=== PATIENT | male | born 1995 | race Caucasian/White ===

== ENCOUNTER 2017-11-22 04:06 | Inpatient (IN) | payer BC, OTHER ==
[~2017-11-22] VITALS: Ht 177.8 cm; Wt 83.8 kg
[2017-11-22] VITALS (14 sets, daily range): BP systolic 126–157; BP diastolic 64–79; PULSE 62–142; TEMP 36.9–37.3; O2SAT 92–99; Ht 177.8 cm; Wt 83.8 kg
[2017-11-22] MEDS ORDERED: EpINEphrine INJ 1MG/ML AMP 1 MG/ML AMP ONE (04:16)
[2017-11-22] MEDS ORDERED: FAMOTIDINE IV INJ 20 MG in DEXTROSE 5% 100ML 100 ML IV STA (04:17)
[2017-11-22] MEDS ORDERED: SODIUM CHLORIDE 0.9% 1000ML 1,000 ML IV STA ×2 (04:17→04:42)
[2017-11-22] MEDS ORDERED: DiphenhydrAMINE HCL 50 MG/ML VIAL IV STA (04:17)
[2017-11-22] MEDS ORDERED: RACEPINEPHRINE 2.25% NEBU SOLN 0.5 ML VIAL INH STA (04:20)
[2017-11-22] MEDS ORDERED: ALBUT/IPRATROP 3MG/0.5MG NEB 3 ML VIAL INH STA (04:25)
[2017-11-22] MEDS ORDERED: EpINEphrine HCL INJ 4 MG in DEXTROSE 5% 250ML 250 ML IV STA (04:26)
[2017-11-22] MEDS ORDERED: EpINEphrine INJ 1MG/ML AMP 1 MG/ML AMP IM STA (04:26)
--- NOTE | 2017-11-22 04:26 | EMERGENCY ROOM VISIT NOTE ---
History Report prepared by Fatuma: Ayan Ball Under the Supervision of: Dr. Erik Kurtz M.D. First contact with patient: 04:17 Chief Complaint: ALLERGIC REACTION Stated Complaint: ALLERGY History of Present Illness The patient is a 22 year old male who presents to the Emergency Room with complaints of a worsening allergic reaction that occurred 20 minutes ago. Patient states that he is allergic to milk products. He adds that he used his Epipen in the ER room seconds prior to me entering. Patient states that he has a history of similar symptoms. He states that during the last episode he did not need a tube down his throat. Patient adds that he drank alcohol tonight. Source of History: patient Onset: 20 minutes ago Position: other (Global) Timing: worsening Modifying Factors (Relieving): other (None) Review of Systems See HPI for pertinent positives & negatives. A total of 10 systems reviewed and were otherwise negative. Past Medical & Surgical Medical Problems: (1) Asthma Family History No pertinent family history. Social History Smoking Status: Never Smoker Current/Historical Medications Scheduled Fluticasone Prop/Salmeterol (Advair Diskus 100/50 60 Dose), 2 PUFF INH BID Scheduled PRN Albuterol Hfa (Ventolin Hfa), 2 PUFFS INH Q6H PRN for SOB/Wheezing Allergies Coded Allergies: Dairy (Verified Allergy, Severe, ANAPHYLAXIS, 11/22/17) Physical Exam Vital Signs Date Time Temp Pulse Resp B/P (MAP) Pulse Ox O2 Delivery O2 Flow Rate FiO2 11/22/17 05:56 94 Nasal Cannula 3.0 11/22/17 05:52 90 18 123/72 95 Room Air 11/22/17 05:01 95 22 139/82 98 Nebulizer 10.0 11/22/17 04:52 142 36 96 Mask 15.0 11/22/17 04:36 147 11/22/17 04:33 87 Room Air 11/22/17 04:33 36.5 137 28 150/91 97 Nebulizer 11/22/17 04:20 130 32 88 Room Air Physical Exam GENERAL: Patient is severely ill appearing, acute anaphylactic state, and in severe distress. HEENT: No acute trauma, normocephalic atraumatic, mucous membranes moist, no nasal congestion, no scleral icterus, swelling of eyelids, lips, and ears. NECK: No stridor, no adenopathy, no meningismus, trachea is midline. LUNGS: Mild stridor with diffuse expiratory and inspiratory wheezing, dyspnea, tachypnea, very tight lung sounds, no rhonchi. HEART: Tachycardic rate and rhythm. No murmurs, rubs, gallops appreciated. ABDOMEN: Soft, nontender, bowel sounds positive, no masses appreciated, no peritonitis. BACK: No midline tenderness, no CVA tenderness EXTREMITIES: Normal motion all extremities, no cyanosis, no edema. NEUROLOGIC: Alert and oriented, no acute motor or sensory deficits, no focal weakness, cranial nerves grossly intact. SKIN: Erythematous with blotching/hives, no jaundice, no diaphoresis. Medical Decision & Procedures ER Provider Diagnostic Interpretation: X ray results are stated below per my interpretation: Chest: 1 view: No infiltrate, no effusion, normal cardiac border. Laboratory Results 11/22/17 04:24 Red Blood Count 5.59, Mean Corpuscular Volume 90.2, Mean Corpuscular Hemoglobin 32.9, Mean Corpuscular Hemoglobin Concent 36.5, Mean Platelet Volume 11.1, Neutrophils (%) (Auto) 45.4, Lymphocytes (%) (Auto) 48.5, Monocytes (%) (Auto) 5.1, Eosinophils (%) (Auto) 0.6, Basophils (%) (Auto) 0.1, Neutrophils # (Auto) 3.11, Lymphocytes # (Auto) 3.32, Monocytes # (Auto) 0.35, Eosinophils # (Auto) 0.04, Basophils # (Auto) 0.01 11/22/17 04:24 Test 11/22/17 04:24 White Blood Count 6.85 K/uL (4.8-10.8) Red Blood Count 5.59 M/uL (4.7-6.1) Hemoglobin 18.4 g/dL (14.0-18.0) Hematocrit 50.4 % (42-52) Mean Corpuscular Volume 90.2 fL (80-100) Mean Corpuscular Hemoglobin 32.9 pg (25-34) Mean Corpuscular Hemoglobin Concent 36.5 g/dl (32-36) Platelet Count 272 K/uL (130-400) Mean Platelet Volume 11.1 fL (7.4-10.4) Neutrophils (%) (Auto) 45.4 % Lymphocytes (%) (Auto) 48.5 % Monocytes (%) (Auto) 5.1 % Eosinophils (%) (Auto) 0.6 % Basophils (%) (Auto) 0.1 % Neutrophils # (Auto) 3.11 K/uL (1.4-6.5) Lymphocytes # (Auto) 3.32 K/uL (1.2-3.4) Monocytes # (Auto) 0.35 K/uL (0.11-0.59) Eosinophils # (Auto) 0.04 K/uL (0-0.5) Basophils # (Auto) 0.01 K/uL (0-0.2) RDW Standard Deviation 42.8 fL (36.4-46.3) RDW Coefficient of Variation 13.0 % (11.5-14.5) Immature Granulocyte % (Auto) 0.3 % Immature Granulocyte # (Auto) 0.02 K/uL (0.00-0.02) Anion Gap 8.0 mmol/L (3-11) Estimated GFR () 133.6 Estimated GFR (Non- 115.3 BUN/Creatinine Ratio 10.8 (10-20) Calcium Level 9.2 mg/dl (8.5-10.1) Laboratory results as reviewed by me. Medications Administered Medications (Trade) Dose Ordered Sig/Eileen Route Start Time Stop Time Status Last Admin Dose Admin Epinephrine HCl (EpINEphrine INJ 1MG/ML AMP/VIAL) 1 mg STK-MED ONCE .ROUTE 11/22/17 04:16 11/22/17 04:17 DC 11/22/17 04:16 0.5 MG Diphenhydramine HCl (Benadryl Inj) 50 mg NOW STAT IV 11/22/17 04:17 11/22/17 04:19 DC 11/22/17 04:23 50 MG Dexamethasone Sodium Phosphate (Dexamethasone Inj Pf) 10 mg NOW ONCE IV 11/22/17 04:30 11/22/17 04:31 DC 11/22/17 04:23 10 MG Sodium Chloride 1,000 ml @ 999 mls/hr Q1H1M STAT IV 11/22/17 04:17 11/22/17 05:17 DC 11/22/17 04:23 999 MLS/HR Famotidine 20 mg/ Dextrose 102 ml @ 200 mls/hr NOW STAT IV 11/22/17 04:17 11/22/17 04:47 DC 11/22/17 04:45 200 MLS/HR Racepinephrine (Raccemic Epinephrine 2.25% 0.5ML Neb) 0.5 ml NOW STAT INH 11/22/17 04:20 11/22/17 04:21 DC 11/22/17 04:29 0.5 ML Albuterol/ Ipratropium (Duoneb) 3 ml NOW STAT INH 11/22/17 04:25 11/22/17 04:26 DC 11/22/17 04:51 3 ML Epinephrine HCl (EpINEphrine INJ 1MG/ML AMP/VIAL) 0.5 mg NOW STAT IM 11/22/17 04:26 11/22/17 04:28 DC 11/22/17 04:31 0.5 MG Sodium Chloride 1,000 ml @ 125 mls/hr Q8H STAT IV 11/22/17 04:42 11/22/17 06:53 DC 11/22/17 05:28 125 MLS/HR ED Course 0415: The patient was evaluated in room A3. A complete history and physical exam was performed. 0417: Famotidine 20mg/Dextrose 102ml @ 200mls/hr IV, Sodium Chloride 1000 ml @ 999 mls/hr IV, Benadryl Inj 50mg IV 0420: Racepinephrine 0.5ml INH 0426: Duoneb 3ml INH, Epinephrine HCl 4mg/Dextrose 254 ml @ 0 mls/hr IV, Epinephrine HCl 0.5mg IM 0427: Patient has not improved after the second Epi. I asked that the patient be moved to the trauma bay. I paged critical care. 0430: Dexamethasone Sodium Phosphate 10mg IV 0431: Patient has shown mild improvement. Patient still has very tight lung sounds. He is bright red with hives and ill appearing. 0442: Sodium Chloride 1000 ml @ 125 mls/hr IV 0443: Patient is breathing much better. He is still quite erythematous. Patient has received 3 rounds of IV epinephrine thus far. 0501: Patient is stable. Erythema starting to improve and he states he is beginning to breath well. 0523: Patient is agreeable to coming into the hospital. 0555: Upon reevaluation, the waste management specialist and hospital are at bedside. I discussed results and treatment plan with the patient. He verbalized understanding and agreement with the treatment plan. The patient will be evaluated for further management. Medical Decision Differential: Allergic Reaction, Urticaria, Anaphylaxis, Asthma Exacerbation, Infectious etiology, amongst other etiologies entertained. 22 yr old male arrives in extremis from anaphylaxis s/p eating cheese (known severe allergy milk). Took his own EpiPen on arrival (Exp Nov 2016) just before my evaluation. 2 IVs obtained and patient given another 2 doses IM Epinephrine over next 10-15 minutes. Decadron, Benadryl, Pepcid IV, along with IV fluids. Significant asthma exacerbation by exam which I suspect was set off by anaphylaxis thus hour neb. Initial stridor essentially gone after IM epi and neb Race epi initially. Bedside managemnt throughout much of stay with airway equipment made ready by charge nurse given his initial appearance/ findings. Many repetive exams and while BP remained stable (a bit high post each epi), given persistent symptoms initially was going to start Epi gtt, though symptoms started turning around just prior to this. Labs and CXR unremarkable. BP normalizing as was HR. Still with persistent wheezing though no further stridor, no further significant lip/face swelling, and breathing much more comfortably. I do not feel this is PE, infectious, or other cause. Will hold on intubation given vast improvement he has had while here. 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 This was a life/limb threatening event. This includes time spent evaluating patient, direct bedside care, chart review, placing orders, interpretation of diagnostic studies, discussion with consultants, patient, and family members, as well as other required patient management activities. This 45 minutes is in excess of all separately billable procedures. Scribe Attestation The scribe's documentation has been prepared under my direction and personally reviewed by me in its entirety. I confirm that the note above accurately reflects all work, treatment, procedures, and medical decision making performed by me. Departure Information Dispostion Being Evaluated By Hospitalist Referrals No Doctor, Assigned (PCP) Forms HOME CARE DOCUMENTATION FORM, IMPORTANT VISIT INFORMATION Patient Instructions [facility] Problem Qualifiers
[2017-11-22] MEDS ORDERED: DEXAMETHASONE **PF** INJ 10 MG/ML VIAL IV ONE (04:30)
[2017-11-22 04:32] LABS: BASO % 0.1 %; BASO ABS # 0.01 K/uL (0-0.2); EOS % 0.6 %; EOS ABS # 0.04 K/uL (0-0.5); HEMATOCRIT 50.4 % (42-52); HEMOGLOBIN 18.4 g/dL (14.0-18.0); IG# 0.02 K/uL (0.00-0.02); LYMPH % 48.5 %; LYMPH ABS # 3.32 K/uL (1.2-3.4); MEAN CELL VOLUME 90.2 fL (80-100); MEAN CORPUSCULAR HEMOGLOBIN 32.9 pg (25-34); MEAN CORPUSCULAR HGB CONC 36.5 g/dl (32-36); MEAN PLATELET VOLUME 11.1 fL (7.4-10.4); MONO % 5.1 %; MONO ABS # 0.35 K/uL (0.11-0.59); NEUT % 45.4 %; NEUT ABS # 3.11 K/uL (1.4-6.5); PLATELET COUNT 272 K/uL (130-400); RED CELL DISTRIBUTION WIDTH SD 42.8 fL (36.4-46.3); WHITE BLOOD COUNT 6.85 K/uL (4.8-10.8)
[2017-11-22 04:48] LABS: BLOOD UREA NITROGEN 10 mg/dl (7-18); CALCIUM 9.2 mg/dl (8.5-10.1); CARBON DIOXIDE 26 mmol/L (21-32); CREATININE 0.93 mg/dl (0.60-1.40); GLUCOSE 96 mg/dl (70-99); POTASSIUM 3.8 mmol/L (3.5-5.1); SODIUM 140 mmol/L (136-145)
[2017-11-22] MEDS ORDERED: ADVIN10/60 INH (04:54)
[2017-11-22] MEDS ORDERED: VNTHFA/IN INH (04:54)
[2017-11-22] MEDS ORDERED: ICU PROTOCOL FOR HYPERGLYCEMIA PRN (06:00)
[2017-11-22] MEDS ORDERED: DiphenhydrAMINE INJ 50 MG in SYRINGE 0 ML IV SCH (06:15)
[2017-11-22] MEDS ORDERED: ACETAMINOPHEN IV 100 ML IV PRN (06:15)
--- NOTE | 2017-11-22 06:30 | History and Physical ---
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 In the emergency department he received Decadron 10 mg IV, racemic epinephrine 2, famotidine 20 mg IV, Benadryl 50 mg IV, DuoNeb treatment, nasal cannula oxygen, and did begin to show some improvement that avoided him from being intubated for airway protection. He reports having had a similar episode in the past, with the last episode being 4 years ago. He does report drinking an unknown amount of alcohol this evening as well. He did have an episode of nausea and vomiting, and developed a bright red almost total body macular rash. Family History Noncontributory Social History Smoking Status: Never Smoker Smokeless Tobacco Use: No Alcohol Use: socially Drug Use: none Marital Status: in relationship Occupational Status: [employer] student Immunizations History of Influenza Vaccine: Unknown History of Tetanus Vaccine?: Unknown History of Pneumococcal: Unknown History of Hepatitis B Vaccine: Unknown Multi-Drug Resistant Organisms History of MDRO: No Allergies Coded Allergies: Dairy (Verified Allergy, Severe, ANAPHYLAXIS, 11/22/17) Home Medications Scheduled Fluticasone Prop/Salmeterol (Advair Diskus 100/50 60 Dose), 2 PUFF INH BID Scheduled PRN Albuterol Hfa (Ventolin Hfa), 2 PUFFS INH Q6H PRN for SOB/Wheezing Review of Systems The patient denies fevers, chills, diarrhea , constipation, abdominal pain, pelvic pain, blood in urine or stool, dysuria, urinary frequency or urgency, memory loss, loss of consciousness, rash, abnormal bruising or bleeding, imbalance, focal or generalized weakness, numbness or tingling in arms or legs, generalized arthralgias or myalgias, back or neck pain, or night sweats. The review of systems is otherwise negative other than for that already noted above, and at least 10 systems have been reviewed. Physical Exam Vital Signs Date Time Temp Pulse Resp B/P (MAP) Pulse Ox O2 Delivery O2 Flow Rate FiO2 11/22/17 06:17 73 22 147/72 94 11/22/17 05:56 94 Nasal Cannula 3.0 11/22/17 05:52 90 18 123/72 95 Room Air 11/22/17 05:01 95 22 139/82 98 Nebulizer 10.0 11/22/17 04:52 142 36 96 Mask 15.0 11/22/17 04:36 147 11/22/17 04:33 87 Room Air 11/22/17 04:33 36.5 137 28 150/91 97 Nebulizer 11/22/17 04:20 130 32 88 Room Air The patient is awake, alert and oriented 3, well developed and well nourished, normocephalic and atraumatic, lying in bed and in moderate respiratory distress , improved after above treatments. HEENT--PERRL, EOMI, mucous membranes and oropharynx dry. Neck--supple. No JVD. No bruits. Thyroid normal, trachea midline, no adenopathy. Heart--normal S1 and S2. No murmurs, rubs or gallops. Lungs--diffuse inspiratory and expiratory wheezes, overall still very tight, with moderate respiratory distress and accessory muscle use. Abdomen--normal bowel sounds and soft. Nontender. Nondistended, no hernias or masses, no organomegaly. Extremities--no cyanosis or clubbing. No edema. There are good distal pulses b/ l. Dermatologic--initially diffuse macular rash with hives, which has improved to the generalized flattened macular rash Neurologic--cranial nerves II through XII grossly intact. Rheumatologic--normal range of motion. Psychiatric--normal affect. Diagnostics Laboratory Results Results Past 24 Hours Test 11/22/17 04:24 Range/Units White Blood Count 6.85 4.8-10.8 K/uL Red Blood Count 5.59 4.7-6.1 M/uL Hemoglobin 18.4 14.0-18.0 g/dL Hematocrit 50.4 42-52 % Mean Corpuscular Volume 90.2 80-100 fL Mean Corpuscular Hemoglobin 32.9 25-34 pg Mean Corpuscular Hemoglobin Concent 36.5 32-36 g/dl Platelet Count 272 130-400 K/uL Mean Platelet Volume 11.1 7.4-10.4 fL Neutrophils (%) (Auto) 45.4 % Lymphocytes (%) (Auto) 48.5 % Monocytes (%) (Auto) 5.1 % Eosinophils (%) (Auto) 0.6 % Basophils (%) (Auto) 0.1 % Neutrophils # (Auto) 3.11 1.4-6.5 K/uL Lymphocytes # (Auto) 3.32 1.2-3.4 K/uL Monocytes # (Auto) 0.35 0.11-0.59 K/uL Eosinophils # (Auto) 0.04 0-0.5 K/uL Basophils # (Auto) 0.01 0-0.2 K/uL RDW Standard Deviation 42.8 36.4-46.3 fL RDW Coefficient of Variation 13.0 11.5-14.5 % Immature Granulocyte % (Auto) 0.3 % Immature Granulocyte # (Auto) 0.02 0.00-0.02 K/uL Sodium Level 140 136-145 mmol/L Potassium Level 3.8 3.5-5.1 mmol/L Chloride Level 106 98-107 mmol/L Carbon Dioxide Level 26 21-32 mmol/L Anion Gap 8.0 3-11 mmol/L Blood Urea Nitrogen 10 7-18 mg/dl Creatinine 0.93 0.60-1.40 mg/dl Estimated GFR () 133.6 Estimated GFR (Non- 115.3 BUN/Creatinine Ratio 10.8 10-20 Random Glucose 96 70-99 mg/dl Calcium Level 9.2 8.5-10.1 mg/dl Impression Assessment and Plan Anaphylactic reaction to milk and dairy products/cheeseburger-- Admit to the ICU. Decadron 6 mg IV every 6 hours Benadryl 50 mg IV every 6 hours Famotidine 20 mg IV every 12 hours Albuterol high flow nebulizer every 4 hours while awake and every 2 hours as needed NSS + KCl 20 mEq 125 mL's per hour Nasal cannula 2 L oxygen, titrated to keep pulse ox greater than or equal to 94% . Acetaminophen 1000 mg IV every 8 hours as needed mild pain or temperature. Level of Care Critical Care Advanced Directives Existing Advance Directive: No Existing Living Will: No Existing Power of Meat Curer: No Resuscitation Status FULL RESUSCITATION VTE Prophylaxis VTE Risk Assessment Done? Y/N: Yes Risk Level: Moderate Given or contraindicated: SCD's Social Service Consult None Apply Note Total Time: Critical Care 30 - 74 minutes
--- NOTE | 2017-11-22 06:36 | DIAGNOSTIC IMAGING REPORT ---
CHEST ONE VIEW PORTABLE CLINICAL HISTORY: 22 years-old Male presenting with SHOB, Respiratory difficulty. TECHNIQUE: Portable upright AP view of the chest was obtained. COMPARISON: None. FINDINGS: Cardiomediastinal silhouette normal. Lungs and pleural spaces clear. Osseous structures normal. Upper abdomen normal. IMPRESSION: 1. No acute cardiopulmonary disease. Electronically signed by: Jamal Mayorga M.D. 11/22/2017 6:35 AM Dictated Date/Time: 11/22/2017 6:34 AM
[2017-11-22] MEDS ORDERED: DiphenhydrAMINE HCL 50 MG/ML VIAL IV PRN (07:45)
[2017-11-22] MEDS ORDERED: DiphenhydrAMINE INJ 50 MG in SYRINGE 0 ML IV PRN (07:45)
[2017-11-22] MEDS: ALBUTEROL 0.5% NEB SOLN 2.5 MG/0.5 ML VIAL INH SCH ×3 (07:49→15:30)
--- NOTE | 2017-11-22 08:13 | Critical Care Consultation ---
Critical Care Consultation Date of Consultation: Nov 22, 2017. Attending Physician: Bashir Whittaker M.D. Reason for Consultation: 22-year-old male with significant anaphylactic reaction to dairy this evening resulting in multiple doses of epinephrine as well as racemic epinephrine treatments, steroids, and antihistamines. Requiring close monitoring for rebound symptoms and hemodynamic monitoring for anaphylaxis type reaction. 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 He reports that he has a severe dairy allergy. He admitted drinking this evening, and was unaware of the consumption of dairy until he was retirement through the burger. He did not order a cheeseburger. He was on attempting to harm himself. Approximately 25 minutes after the meal, he noticed symptoms of itchy throat as well as difficulty with breathing and diffuse rash and swelling to the face. He "chugged" approximately one quarter of a bottle of Benadryl as he reports he was panicked. He presented to the emergency department for further evaluation and management. While in the emergency department, he received 3 rounds of epinephrine systemically as well as two racemic epinephrine treatments and IV Benadryl and steroids as well as Zantac. His symptoms slowly improved. He was near the point of intubation, however his breathing did improve as well. On evaluation of the patient in the emergency department, he has diffuse erythematous rash throughout the body and face. There is swelling to the bilateral eyes and tearing of the nose as well as nasal congestion. He has diffuse inspiratory wheezing, but is moving air well. He is able to communicate in complete sentences. He is requiring nasal cannula ox in. At this point, he reports feeling much better than his initial presentation. He denies any difficulty with breathing, throat swelling, itchiness, nausea, or vomiting. The patient does report a previous history of worse reaction while traveling in the [facility] ([place]). He reports that this reaction today is not as intense. Patient lives locally and is a [employer] student. He admits to alcohol consumption. He denies tobacco use. He denies any use of illicit substances. 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 (2) Asthma Family History noncontributory Social History Smoking Status: Current Some Day Smoker Smokeless Tobacco Use: No Alcohol Use: socially Drug Use: none Marital Status: in relationship Housing Status: lives with significant other Occupation Status: [employer] student Allergies Coded Allergies: Dairy (Verified Allergy, Severe, ANAPHYLAXIS, 11/22/17) Home Medications Scheduled Famotidine (Pepcid), 20 MG PO BID Fluticasone Prop/Salmeterol (Advair Diskus 100/50 60 Dose), 2 PUFF INH BID Prednisone (Prednisone), 1 TAB PO DAILY Scheduled PRN Albuterol Hfa (Ventolin Hfa), 2 PUFFS INH Q6H PRN for SOB/Wheezing Current Inpatient Medications Current Inpatient Medications Medications (Trade) Dose Ordered Sig/Eileen Route Start Time Stop Time Status Last Admin Dose Admin Potassium Chloride/Sodium Chloride 1,000 ml @ 125 mls/hr Q8H IV 11/22/17 07:00 12/22/17 06:59 Miscellaneous Information (Icu Protocol For Hyperglycemia) 1 ea PRN PRN N/A 11/22/17 06:00 11/24/17 05:59 Dexamethasone Sodium Phosphate 6 mg/Syringe 1.5 ml @ 1 mls/min Q6H IV 11/22/17 10:00 12/22/17 09:59 Famotidine 20 mg/ Dextrose 102 ml @ 200 mls/hr Q12H IV 11/22/17 16:00 12/22/17 15:59 Albuterol Sulfate (Ventolin 0.5% 2.5MG/0.5ML Neb) 2.5 mg Q4R INH 11/22/17 08:00 12/22/17 07:59 Acetaminophen 100 ml @ 400 mls/hr Q8H PRN IV 11/22/17 06:15 12/22/17 06:14 Diphenhydramine HCl (Benadryl Inj) 50 mg Q6H IV 11/22/17 10:00 12/22/17 09:59 Review of Systems A complete 10-point Review of Systems was discussed with the patient, with pertinent positives and negatives listed in the History of Present Illness. All remaining Review of Systems questions can be considered negative unless otherwise specified. Physical Exam Date Time Temp Pulse Resp B/P (MAP) Pulse Ox O2 Delivery O2 Flow Rate FiO2 11/22/17 06:30 36.9 88 17 132/64 98 Room Air 2/10/18 06:17 73 22 147/72 94 11/22/17 05:56 94 Nasal Cannula 3.0 11/22/17 05:52 90 18 123/72 95 Room Air 11/22/17 05:01 95 22 139/82 98 Nebulizer 10.0 11/22/17 04:52 142 36 96 Mask 15.0 11/22/17 04:36 147 11/22/17 04:33 87 Room Air 11/22/17 04:33 36.5 137 28 150/91 97 Nebulizer 11/22/17 04:20 130 32 88 Room Air VITAL SIGNS - Vital signs and nursing notes were reviewed. GENERAL - 22-year-old male appearing his stated age. Communicates well with provider and answers questions appropriately. SKIN - Gross examination of the entire body surface demonstrates diffuse urticaria throughout the torso. HEAD - Normocephalic, Atraumatic. EYES - PERRL with EOMI bilaterally. Mild bilateral periorbital edema with tearing. Without subconjunctival hemorrhage. Palpebral conjunctiva pink and moist with no injection. EARS - No deformities of external structures noted on gross examination bilaterally. NOSE - Midline and without cyanosis. Moderate congestion noted. MOUTH/OROPHARYNX - Without perioral cyanosis. No angioedema appreciated. Tongue midline with equal elevation of palate bilaterally. Good dentition noted. NECK - Supple to palpation. No JVD noted. LUNGS - Chest wall symmetric without accessory muscle use, intercostals retractions, or central cyanosis. Without stridor. Moderate lower lung field inspiratory wheezes noted. Normal vesicular breath sounds CTA B/L. No rales or rhonchi appreciated. CARDIAC - RRR with S1/S2. No murmur, rubs, or gallops appreciated. ABDOMEN - Abdominal contour flat without pulsations or visible masses. BS normoactive all four quadrants. No rebound tenderness or guarding noted. No tenderness, palpable masses, hepatosplenomegaly, or ascites noted. EXTREMITIES - No gross deformities noted of the extremities. +3/5 radial and dorsalis pedis pulses palpated throughout. +5/5 strength noted in UE/LE bilaterally. NEUROLOGIC - Cranial nerves II through XII grossly intact. Sensory intact to light touch throughout. PSYCH - A&Ox3 and cooperates fully with examiner. Pt is very pleasant and interacts well with examiner. Laboratory Results Last 24 Hours Test 11/22/17 04:24 White Blood Count 6.85 K/uL Red Blood Count 5.59 M/uL Hemoglobin 18.4 g/dL Hematocrit 50.4 % Mean Corpuscular Volume 90.2 fL Mean Corpuscular Hemoglobin 32.9 pg Mean Corpuscular Hemoglobin Concent 36.5 g/dl Platelet Count 272 K/uL Mean Platelet Volume 11.1 fL Neutrophils (%) (Auto) 45.4 % Lymphocytes (%) (Auto) 48.5 % Monocytes (%) (Auto) 5.1 % Eosinophils (%) (Auto) 0.6 % Basophils (%) (Auto) 0.1 % Neutrophils # (Auto) 3.11 K/uL Lymphocytes # (Auto) 3.32 K/uL Monocytes # (Auto) 0.35 K/uL Eosinophils # (Auto) 0.04 K/uL Basophils # (Auto) 0.01 K/uL RDW Standard Deviation 42.8 fL RDW Coefficient of Variation 13.0 % Immature Granulocyte % (Auto) 0.3 % Immature Granulocyte # (Auto) 0.02 K/uL Sodium Level 140 mmol/L Potassium Level 3.8 mmol/L Chloride Level 106 mmol/L Carbon Dioxide Level 26 mmol/L Anion Gap 8.0 mmol/L Blood Urea Nitrogen 10 mg/dl Creatinine 0.93 mg/dl Estimated GFR () 133.6 Estimated GFR (Non- 115.3 BUN/Creatinine Ratio 10.8 Random Glucose 96 mg/dl Calcium Level 9.2 mg/dl Diagnostic Results Radiological imaging and reports were reviewed by myself. Radiologist's Interpretation as follows: CHEST ONE VIEW PORTABLE CLINICAL HISTORY: 22 years-old Male presenting with SHOB, Respiratory difficulty. TECHNIQUE: Portable upright AP view of the chest was obtained. COMPARISON: None. FINDINGS: Cardiomediastinal silhouette normal. Lungs and pleural spaces clear. Osseous structures normal. Upper abdomen normal. IMPRESSION: 1. No acute cardiopulmonary disease. 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 Requiring close monitoring for rebound symptoms and hemodynamic monitoring for anaphylaxis type reaction. Neuro - CAM ICU: NEGATIVE Cardiac - Will monitor on tele s/p administration of multiple rounds of epinephrine as well as close need for monitoring of hemodynamic stability in the setting of anaphylaxis and possible rebound symptoms. Will hold on epinephrine drip at this point. We'll continue steroids, antihistamines, and breathing treatments as needed. Respiratory - Inspiratory stridor appreciated in lower lung devlin after multiple treatments. Patient does have asthma. Suspect the patient likely has improved from an anaphylaxis standpoint, however he may have a slight flare of his asthma. Symptoms improved upon arrival to the ICU. GI - Suspect continued transit of antigens throughout the GI tract. Certainly at high risk for rebound symptoms over the next 6 hours. Will monitor closely. RENAL/LYTES - No acute electrolyte abnormalities. - No issues ENDO - No history of diabetes. HEME - Stable H&H ID - No concern for infection at this point. LINES/IV ACCESS - Peripheral IVs intact. DVT PROPHYLAXIS - Will refrain at this time for anticipated quick discharge. Thank you for this consultation allow us to be part of this patient's care. Please refer to my attending physician's documentation for any further recommendations. Physician Supervision Note: I have made an independent history and physical this morning. I discussed the case with him and agree with the findings and plan as documented in the note. Patient much improved, essentially asymptomatic Continue 5 days of steroids Continue 5 days of Pepcid prn Benadryl Documented By: Jorge Roberson MD
[2017-11-22] MEDS: DEXAMETHASONE INJ 6 MG in SYRINGE 0 ML IV SCH ×2 (09:11→15:20)
[2017-11-22] MEDS: NSS + 20MEQ KCL 1000ML 1,000 ML IV SCH ×2 (09:11→13:57)
[2017-11-22] MEDS ORDERED: DiphenhydrAMINE HCL 50 MG/ML VIAL IV SCH (10:00)
[2017-11-22] MEDS ORDERED: PRED50TA PO (16:00)
[2017-11-22] MEDS ORDERED: FAMOTIDINE IV INJ 20 MG in SYRINGE 3 ML IV SCH (16:00)
[2017-11-22] MEDS ORDERED: FAMO20TA11 PO (16:00)
[2017-11-22] MEDS ORDERED: FAMOTIDINE IV INJ 20 MG in DEXTROSE 5% 100ML 100 ML IV SCH (16:00)
--- NOTE | 2017-11-22 16:03 | Discharge Instructions ---
Discharge Instructions Date of Service Nov 22, 2017. Admission Reason for Admission: Anaphylactic Reaction Due To Milk And Dairy Produc Discharge Discharge Diagnosis / Problem: anaphylaxis Discharge Goals Goal(s): Therapeutic intervention Activity Recommendations Activity Limitations: resume your previous activity . Instructions / Follow-Up Instructions / Follow-Up You were admitted for observation after having anaphylaxis from an allergen. You were treated with epinephrine, steroids and H2 blocks ( help calm down stomach acid when using prednisone). As you had improvement in symptoms and you were breathing well and without oxygen we will be discharging you with a course of steroids and pepcid ( the H2 luis e) for 5 days. Please take both medication as prescribed. If you develop recurrence of symptoms please return to the ED/ call 911. Please make a follow up appointment with your PCP this week. Current Hospital Diet Patient's current hospital diet: Regular Diet Discharge Diet Recommended Diet: Regular Diet Pending Studies Studies pending at discharge: no Medical Emergencies . Who to Call and When: Medical Emergencies: If at any time you feel your situation is an emergency, please call 911 immediately. . Non-Emergent Contact Non-Emergency issues call your: Primary Care Provider . . "Provider Documentation" section prepared by Donna Villagomez. . VTE Core Measure Inpt VTE Proph given/why not?: SCD's
--- NOTE | 2017-11-22 16:05 | Discharge Summary ---
Discharge Summary Date of Service Nov 22, 2017. Discharge Summary Admission Date: Nov 22, 2017 at 06:00 Discharge Date: Nov 22, 2017 Discharge Disposition: Home Principal Diagnosis: Anaphylaxis Immunizations: Have You Had Influenza Vaccine: Unknown History of Tetanus Vaccine?: Unknown History of Pneumococcal: Unknown History of Hepatitis B Vaccine: Unknown Medication Reconciliation New Medications: Famotidine (Pepcid) 20 Mg Tab 20 MG PO BID for 5 Days, #10 TAB Prednisone (Prednisone) 50 Mg Tab 1 TAB PO DAILY for 5 Days, #5 TAB Continued Medications: Albuterol Hfa (Ventolin Hfa) 200 Puffs/60281 Mcg Aers 2 PUFFS INH Q6H PRN for SOB/Wheezing, #1 INHALER Fluticasone Prop/Salmeterol (Advair Diskus 100/50 60 Dose) 1 Ea Aerp 2 PUFF INH BID, INHALER Discharge Exam Patient denies any respiratory symptoms and is back to we discussed discharge instructions and patient reflected understanding of instructions and comfortable with d/c home Discussed need and reason for d/c medications and patient reflected understanding about importance of compliance questions addressed Review of Systems: Constitutional: No fever Eyes: No worsening of vision ENT: No hearing loss Respiratory: No cough, No sputum, No wheezing, No shortness of breath, No dyspnea on exertion, No dyspnea at rest Cardiovascular: No chest pain Abdomen: No pain, No nausea, No vomiting, No diarrhea, No constipation, No GI bleeding Musculoskeletal: No joint pain, No muscle pain Genitourinary - Male: No hematuria, No dysuria Neurologic: No weakness, No numbness/tingling, No balance problems Psychiatric: No depression symptoms, No anxiety Endocrine: No fatigue Hematologic / Lymphatic: No abnormal bleeding/bruising Integumentary: No rash Physical Exam: General Appearance: no apparent distress Eyes: normal inspection ENT: normal ENT inspection, + pertinent finding (no swelling of lips/ tongue appreciated) Neck: supple Respiratory/Chest: no respiratory distress, no accessory muscle use, + pertinent finding (clear on exam) Cardiovascular: regular rate, rhythm, no murmur, normal peripheral pulses Abdomen / GI: normal bowel sounds, non tender, soft Extremities: no calf tenderness, no pedal edema, normal range of motion Neurologic/Psychiatric: alert, normal mood/affect, oriented x 3 Skin: normal color, warm/dry, no rash Lymphatic: no adenopathy Hospital Course This is a 22 yo m that was admitted to the ICU after suffering from an anaphylactic reaction following ingestion of milk products. Patient was treated with racemic epinephrine, steroids, albuterol, Benadryl and H2 blockers and once medically stable was d/c home on steroids and H2 blockers. Close follow up with PCP was advised Total Time Spent: Greater than 30 minutes This includes examination of the patient, discharge planning, medication reconciliation, and communication with other providers. Discharge Instructions Please refer to the electronic Patient Visit Report (Discharge Instructions) for additional information. Reviewed: Pt Seen/Exam by Me History feeling well Respiratory: negative: cough, short of breath Cardiovascular: denies chest pain Gastrointestinal/Abdominal: negative: abdominal pain General Appearance: no apparent distress Respiratory: lungs clear, no respiratory distress Cardiovascular: regular rate, rhythm Neurologic/Psychiatric: alert, oriented x 3 Skin Characteristics: warm/dry Assessment/Plan Resident Physician Supervision Note: I independently interviewed and examined the patient and verified the avila history and physical, reviewed labs and image studies, discussed the case with the resident Dr. Villagomez and agree with the findings and care plan.
== END 2017-11-22 16:30 | disposition home or self-care (01) | DRG 916 ==
LOC: C.EDB 04:09 → C.MSICU 06:00 → ENRESERV 06:10
PROVIDERS: ADMIT Hospitalist; ATTEND Family Medicine
DX: T78.07XA Anaphylactic reaction due to milk and dairy products, initial encounter (principal); J45.901 Unspecified asthma with (acute) exacerbation; F17.200 Nicotine dependence, unspecified, uncomplicated; Z91.011 Allergy to milk products